=== PATIENT | female | born 1990 ===

== ENCOUNTER 2018-07-11 19:38 | Inpatient (IN) ==
[2018-07-11] MEDS ORDERED: MORPHINE 4 MG/1 ML VIAL IV STA (20:08)
[2018-07-11] MEDS ORDERED: ONDANSETRON 4 MG/2 ML VIAL IV STA (20:08)
[2018-07-11] MEDS ORDERED: MORPHINE 10 MG/1 ML VIAL IV SCH (20:30)
[2018-07-11] MEDS: metroNIDAZOLE INJ 500 MG in PREMIX 1 EACH IV SCH (20:55)
[2018-07-11] MEDS: ONDANSETRON 4 MG/2 ML VIAL IV PRN (22:11)
[2018-07-11] MEDS: MORPHINE 10 MG/1 ML VIAL IV PRN (22:12)
[2018-07-11] MEDS: DEXTROSE 5% LACTATED RINGERS 1,000 ML IV SCH (22:34)
[2018-07-11] MEDS: PIPERACILLIN/TAZOBACTAM 3,375 MG in SODIUM CHLORIDE 0.9% 100 ML IV SCH (22:34)
[2018-07-11] MEDS: KETOROLAC 15 MG/1 ML VIAL IV SCH (23:20)
[2018-07-12] MEDS: MORPHINE 10 MG/1 ML VIAL IV PRN (02:36)
[2018-07-12] MEDS ORDERED: KETOROLAC 15 MG/1 ML VIAL IV ONE (04:00)
[2018-07-12] MEDS: KETOROLAC 15 MG/1 ML VIAL IV SCH ×4 (04:02→23:27)
[2018-07-12] MEDS: HYDROmorphone 2 MG/1 ML VIAL IV PRN ×2 (04:03→15:04)
[2018-07-12] MEDS: metroNIDAZOLE INJ 500 MG in PREMIX 1 EACH IV SCH ×3 (04:11→20:52)
[2018-07-12] MEDS: PIPERACILLIN/TAZOBACTAM 3,375 MG in SODIUM CHLORIDE 0.9% 100 ML IV SCH ×3 (05:38→21:53)
[2018-07-12] MEDS: DEXTROSE 5% LACTATED RINGERS 1,000 ML IV SCH ×2 (05:41→12:30)
[2018-07-12 05:50] LABS: Basophils % 0.2 % (0.0-0.8); Hematocrit 39.6 VOL% (35.7-47.0); Hemoglobin 12.7 GM/DL (12.0-16.0); Immature Granulocytes % 0.6 %; Lymphocytes % 5.4 % (21.3-54.2); Mean Corpuscular HGB Conc 32.1 GM/DL (32-36); Mean Corpuscular Hemoglobin 28 PG (27-34); Mean Corpuscular Volume 88.6 FL (87-102); Mean Platelet Volume 10.1 FL (9.6-12.0); Monocytes # 0.8 10*3/uL (0.11-0.8); Monocytes % 4.3 % (1.7-12.7); Neutrophils # 15.9 10*3/uL (1.4-7.4); Neutrophils % 89.5 % (38.7-73.9); Platelet Count 267 T/CUMM (130-400); Red Blood Count 4.47 MC/CUMM (3.8-5.5); Red Cell Distribution Width 13.8 % (9.3-17.3); White Blood Count 17.8 T/CUMM (4-12)
[2018-07-12 06:18] LABS: Band Neutrophils 6 % (0-10); Hypochromasia 1+; Lymphocytes 6 % (20-55); Platelet Estimate Adequate; Segmented Neutrophils 84 % (50-85); Total Cells Counted 100
[2018-07-12] MEDS ORDERED: TISSUE ADHESIVE 1 EACH APPLICATOR TOP ONE (07:23)
[2018-07-12] MEDS ORDERED: LIDOCAINE 1%/EPI INJ 20 ML VIAL ONE ×2 (07:23→07:46)
[2018-07-12] MEDS ORDERED: BUPIVACAINE 0.25% /EPI 10 ML VIAL ONE (07:23)
[2018-07-12] MEDS ORDERED: SUGAMMADEX 200 MG/2 ML VIAL IV ONE (08:45)
[2018-07-12] MEDS ORDERED: DEXAMETHASONE 10 MG/1 ML VIAL ONE (09:21)
[2018-07-12] MEDS ORDERED: PROPOFOL 200 MG/20 ML VIAL IV ONE (09:21)
[2018-07-12] MEDS ORDERED: MIDAZOLAM 2 MG/2 ML VIAL ONE (09:21)
[2018-07-12] MEDS ORDERED: DESFLURANE 1 UNIT/15 MINUTE INH ONE (09:21)
[2018-07-12] MEDS ORDERED: ONDANSETRON 4 MG/2 ML VIAL ONE (09:21)
[2018-07-12] MEDS ORDERED: SUCCINYLCHOLINE 200 MG/10 ML VIAL ONE (09:21)
[2018-07-12] MEDS ORDERED: ACETAMINOPHEN 1,000 MG/100 ML VIAL IV ONE (09:21)
[2018-07-12] MEDS ORDERED: ROCURONIUM 100 MG/10 ML VIAL IV ONE (09:21)
[2018-07-12] MEDS ORDERED: fentaNYL 100 MCG/2 ML VIAL ONE (09:21)
[2018-07-12] MEDS ORDERED: LACTATED RINGERS 1,000 ML IV ONE (09:22)
[2018-07-12] MEDS: PANTOPRAZOLE 40 MG TABLET PO SCH (11:38)
[2018-07-13] MEDS: DEXTROSE 5% LACTATED RINGERS 1,000 ML IV SCH ×3 (00:02→12:30)
[2018-07-13] MEDS: KETOROLAC 15 MG/1 ML VIAL IV SCH ×3 (05:20→18:34)
[2018-07-13] MEDS: PIPERACILLIN/TAZOBACTAM 3,375 MG in SODIUM CHLORIDE 0.9% 100 ML IV SCH ×2 (05:22→16:29)
[2018-07-13] MEDS: metroNIDAZOLE INJ 500 MG in PREMIX 1 EACH IV SCH ×3 (05:41→21:05)
[2018-07-13 06:41] LABS: Basophils % 0.2 % (0.0-0.8); Eosinophils # 0.1 10*3/uL (0.0-0.87); Eosinophils % 0.8 % (0.00-10.9); Hematocrit 35.2 VOL% (35.7-47.0); Hemoglobin 11.6 GM/DL (12.0-16.0); Immature Granulocytes % 0.6 %; Immature Granulocytes Absolute 0.08 #; Lymphocytes # 1.6 10*3/uL (1.4-4.0); Lymphocytes % 11.2 % (21.3-54.2); Mean Corpuscular Hemoglobin 29 PG (27-34); Mean Corpuscular Volume 86.9 FL (87-102); Mean Platelet Volume 10.4 FL (9.6-12.0); Monocytes # 0.7 10*3/uL (0.11-0.8); Monocytes % 5.1 % (1.7-12.7); NRBC # 0.02 10*3/uL; Neutrophils # 11.9 10*3/uL (1.4-7.4); Neutrophils % 82.1 % (38.7-73.9); Platelet Count 226 T/CUMM (130-400); Red Blood Count 4.05 MC/CUMM (3.8-5.5); Red Cell Distribution Width 13.8 % (9.3-17.3); White Blood Count 14.5 T/CUMM (4-12)
[2018-07-13 07:09] LABS: Calcium 7.7 MG/DL (8.5-10.1); Osmolality,Calculated 277.7 MOS/KG (273-304); Potassium 3.4 MMOL/L (3.5-5.1)
[2018-07-13 07:10] LABS: Hypochromasia Slight; Microcytosis 1+; Platelet Estimate Normal
[2018-07-13] MEDS: PANTOPRAZOLE 40 MG TABLET PO SCH (09:54)
[2018-07-14] MEDS: KETOROLAC 15 MG/1 ML VIAL IV SCH ×5 (00:12→23:38)
[2018-07-14] MEDS: PIPERACILLIN/TAZOBACTAM 3,375 MG in SODIUM CHLORIDE 0.9% 100 ML IV SCH ×3 (01:00→17:43)
[2018-07-14] MEDS: DEXTROSE 5% LACTATED RINGERS 1,000 ML IV SCH ×3 (02:50→21:18)
[2018-07-14] MEDS: metroNIDAZOLE INJ 500 MG in PREMIX 1 EACH IV SCH ×3 (05:09→21:16)
[2018-07-14 05:45] LABS: Basophils % 0.2 % (0.0-0.8); Eosinophils # 0.4 10*3/uL (0.0-0.87); Eosinophils % 2.1 % (0.00-10.9); Hematocrit 34.9 VOL% (35.7-47.0); Hemoglobin 11.4 GM/DL (12.0-16.0); Immature Granulocytes % 0.6 %; Immature Granulocytes Absolute 0.11 #; Lymphocytes # 1.8 10*3/uL (1.4-4.0); Lymphocytes % 9.9 % (21.3-54.2); Mean Corpuscular HGB Conc 32.7 GM/DL (32-36); Mean Corpuscular Hemoglobin 29 PG (27-34); Mean Corpuscular Volume 87.9 FL (87-102); Mean Platelet Volume 10.4 FL (9.6-12.0); Monocytes % 5.5 % (1.7-12.7); Neutrophils # 14.6 10*3/uL (1.4-7.4); Neutrophils % 81.7 % (38.7-73.9); Platelet Count 228 T/CUMM (130-400); Red Blood Count 3.97 MC/CUMM (3.8-5.5); White Blood Count 17.9 T/CUMM (4-12)
[2018-07-14 06:04] LABS: Hypochromasia 1+; Microcytosis 1+
[2018-07-14 06:05] LABS: Platelet Estimate Normal
[2018-07-14] MEDS: PANTOPRAZOLE 40 MG TABLET PO SCH (09:17)
[2018-07-15] MEDS: PIPERACILLIN/TAZOBACTAM 3,375 MG in SODIUM CHLORIDE 0.9% 100 ML IV SCH ×3 (01:09→17:23)
[2018-07-15 02:59] LABS: Apearance,Urine CLEAR (Clear); Bilirubin,Urine Negative (Negative); Blood, Urine Negative (Negative); Glucose,Urine (UA) 50 mg/dL (Negative); Ketones,Urine Negative (Negative); Nitrite,Urine Negative (Negative); Protein,Urine 30 MG/DL; RBC,Urine 1 /HPF (0-4); Squamous Epithelial Cell,Urine Occasional /HPF (0-10); Urine Color Yellow (Yellow); Urine Specific Gravity 1.018 (1.001-1.035); Urine Urobilinogen < 2.0 EU/DL (0.2-1.0); WBC,Urine 1 /HPF (0-6)
[2018-07-15] MEDS: metroNIDAZOLE INJ 500 MG in PREMIX 1 EACH IV SCH ×3 (04:10→21:39)
[2018-07-15] MEDS: KETOROLAC 15 MG/1 ML VIAL IV SCH ×4 (04:11→23:26)
[2018-07-15 05:11] LABS: Basophils % 0.2 % (0.0-0.8); Eosinophils # 0.4 10*3/uL (0.0-0.87); Eosinophils % 2.6 % (0.00-10.9); Hemoglobin 10.4 GM/DL (12.0-16.0); Immature Granulocytes % 0.9 %; Immature Granulocytes Absolute 0.14 #; Lymphocytes # 2.1 10*3/uL (1.4-4.0); Mean Corpuscular HGB Conc 32.5 GM/DL (32-36); Mean Corpuscular Hemoglobin 29 PG (27-34); Mean Corpuscular Volume 88.4 FL (87-102); Mean Platelet Volume 10.4 FL (9.6-12.0); Monocytes # 1.6 10*3/uL (0.11-0.8); Neutrophils # 11.9 10*3/uL (1.4-7.4); Neutrophils % 73.3 % (38.7-73.9); Platelet Count 212 T/CUMM (130-400); Red Blood Count 3.62 MC/CUMM (3.8-5.5); Red Cell Distribution Width 14.1 % (9.3-17.3); White Blood Count 16.2 T/CUMM (4-12)
[2018-07-15] MEDS: DEXTROSE 5% LACTATED RINGERS 1,000 ML IV SCH (05:21)
[2018-07-15 05:28] LABS: Calcium 7.8 MG/DL (8.5-10.1); Osmolality,Calculated 281.5 MOS/KG (273-304); Potassium 3.1 MMOL/L (3.5-5.1)
[2018-07-15 05:37] LABS: Hypochromasia 1+; Microcytosis 1+; Platelet Estimate Adequate
[2018-07-15] MEDS: PANTOPRAZOLE 40 MG TABLET PO SCH (09:45)
[2018-07-15] MEDS: ONDANSETRON 4 MG/2 ML VIAL IV PRN (10:49)
[2018-07-16] MEDS: PIPERACILLIN/TAZOBACTAM 3,375 MG in SODIUM CHLORIDE 0.9% 100 ML IV SCH ×3 (00:26→17:06)
[2018-07-16] MEDS: MORPHINE 4 MG/1 ML VIAL IV PRN ×2 (00:30→21:41)
[2018-07-16] MEDS: metroNIDAZOLE INJ 500 MG in PREMIX 1 EACH IV SCH ×3 (05:31→22:10)
[2018-07-16] MEDS: KETOROLAC 15 MG/1 ML VIAL IV SCH ×3 (05:32→17:02)
[2018-07-16 06:03] LABS: Basophils % 0.2 % (0.0-0.8); Eosinophils # 0.4 10*3/uL (0.0-0.87); Eosinophils % 3.1 % (0.00-10.9); Hemoglobin 11.2 GM/DL (12.0-16.0); Immature Granulocytes % 1.1 %; Immature Granulocytes Absolute 0.13 #; Lymphocytes % 16.4 % (21.3-54.2); Mean Corpuscular Hemoglobin 28 PG (27-34); Mean Corpuscular Volume 87.5 FL (87-102); Mean Platelet Volume 10.6 FL (9.6-12.0); Monocytes # 1.3 10*3/uL (0.11-0.8); Monocytes % 10.3 % (1.7-12.7); Neutrophils # 8.5 10*3/uL (1.4-7.4); Neutrophils % 68.9 % (38.7-73.9); Platelet Count 258 T/CUMM (130-400); Red Cell Distribution Width 14.5 % (9.3-17.3); White Blood Count 12.4 T/CUMM (4-12)
[2018-07-16 06:23] LABS: Calcium 8.2 MG/DL (8.5-10.1); Osmolality,Calculated 278.4 MOS/KG (273-304)
[2018-07-16] MEDS: PANTOPRAZOLE 40 MG TABLET PO SCH (10:06)
[2018-07-16] MEDS ORDERED: POTASSIUM CHLORIDE 20 MEQ TABLET PO ONE ×2 (12:02→15:00)
[2018-07-17] MEDS: PIPERACILLIN/TAZOBACTAM 3,375 MG in SODIUM CHLORIDE 0.9% 100 ML IV SCH ×3 (01:08→16:58)
[2018-07-17] MEDS: MORPHINE 4 MG/1 ML VIAL IV PRN ×2 (05:26→19:36)
[2018-07-17] MEDS: metroNIDAZOLE INJ 500 MG in PREMIX 1 EACH IV SCH ×3 (05:31→21:25)
[2018-07-17 06:10] LABS: Basophils # 0.1 10*3/uL (0.0-0.2); Basophils % 0.4 % (0.0-0.8); Eosinophils # 0.3 10*3/uL (0.0-0.87); Eosinophils % 2.5 % (0.00-10.9); Hematocrit 33.6 VOL% (35.7-47.0); Hemoglobin 10.9 GM/DL (12.0-16.0); Immature Granulocytes % 2.2 %; Immature Granulocytes Absolute 0.29 #; Lymphocytes # 2.1 10*3/uL (1.4-4.0); Lymphocytes % 15.9 % (21.3-54.2); Mean Corpuscular HGB Conc 32.4 GM/DL (32-36); Mean Corpuscular Hemoglobin 28 PG (27-34); Mean Platelet Volume 10.5 FL (9.6-12.0); Monocytes # 1.3 10*3/uL (0.11-0.8); Monocytes % 10.2 % (1.7-12.7); Neutrophils # 8.9 10*3/uL (1.4-7.4); Neutrophils % 68.8 % (38.7-73.9); Platelet Count 265 T/CUMM (130-400); Red Blood Count 3.86 MC/CUMM (3.8-5.5); Red Cell Distribution Width 14.6 % (9.3-17.3)
[2018-07-17 06:36] LABS: Eosinophils 5 % (0-10); Lymphocytes 32 % (20-55); Myelocytes 1 %; Segmented Neutrophils 48 % (50-85); Total Cells Counted 100
[2018-07-17 06:37] LABS: Hypochromasia Slight; Platelet Estimate Normal; Polychromasia Few
[2018-07-17 06:51] LABS: Calcium 7.6 MG/DL (8.5-10.1); Osmolality,Calculated 276.5 MOS/KG (273-304); Potassium 3.4 MMOL/L (3.5-5.1)
[2018-07-17] MEDS: PANTOPRAZOLE 40 MG TABLET PO SCH (08:57)
[2018-07-17] MEDS ORDERED: POTASSIUM CHLORIDE 20 MEQ TABLET PO ONE (09:04)
[2018-07-17] MEDS ORDERED: BISACODYL 10 MG SUPP RECTAL ONE (09:05)
[2018-07-18] MEDS: PIPERACILLIN/TAZOBACTAM 3,375 MG in SODIUM CHLORIDE 0.9% 100 ML IV SCH ×3 (00:27→17:39)
[2018-07-18] MEDS: MORPHINE 4 MG/1 ML VIAL IV PRN ×3 (03:17→17:43)
[2018-07-18] MEDS: metroNIDAZOLE INJ 500 MG in PREMIX 1 EACH IV SCH ×3 (05:13→21:50)
[2018-07-18 06:06] LABS: Basophils # 0.1 10*3/uL (0.0-0.2); Basophils % 0.4 % (0.0-0.8); Eosinophils # 0.3 10*3/uL (0.0-0.87); Eosinophils % 2.1 % (0.00-10.9); Hematocrit 34.2 VOL% (35.7-47.0); Immature Granulocytes % 4.3 %; Immature Granulocytes Absolute 0.65 #; Lymphocytes # 2.8 10*3/uL (1.4-4.0); Lymphocytes % 18.6 % (21.3-54.2); Mean Corpuscular HGB Conc 32.2 GM/DL (32-36); Mean Corpuscular Hemoglobin 28 PG (27-34); Mean Corpuscular Volume 87.2 FL (87-102); Mean Platelet Volume 9.8 FL (9.6-12.0); Monocytes # 1.4 10*3/uL (0.11-0.8); Neutrophils % 65.6 % (38.7-73.9); Platelet Count 361 T/CUMM (130-400); Red Blood Count 3.92 MC/CUMM (3.8-5.5); Red Cell Distribution Width 14.8 % (9.3-17.3); White Blood Count 15.2 T/CUMM (4-12)
[2018-07-18 06:28] LABS: Calcium 8.1 MG/DL (8.5-10.1); Osmolality,Calculated 272.7 MOS/KG (273-304); Potassium 3.8 MMOL/L (3.5-5.1)
[2018-07-18 06:46] LABS: Atypical Lymphocytes Few; Eosinophils 4 % (0-10); Hypochromasia 1+; Lymphocytes 24 % (20-55); Myelocytes 1 %; Segmented Neutrophils 63 % (50-85); Total Cells Counted 100
[2018-07-18 06:47] LABS: Microcytosis Slight; Platelet Estimate Increased
[2018-07-18] MEDS: PANTOPRAZOLE 40 MG TABLET PO SCH (09:28)
[2018-07-19] MEDS: MORPHINE 4 MG/1 ML VIAL IV PRN ×2 (02:23→21:42)
[2018-07-19] MEDS: PIPERACILLIN/TAZOBACTAM 3,375 MG in SODIUM CHLORIDE 0.9% 100 ML IV SCH ×3 (02:31→16:12)
[2018-07-19] MEDS: metroNIDAZOLE INJ 500 MG in PREMIX 1 EACH IV SCH ×3 (06:36→20:33)
[2018-07-19] MEDS: PANTOPRAZOLE 40 MG TABLET PO SCH (11:05)
[2018-07-20] MEDS: PIPERACILLIN/TAZOBACTAM 3,375 MG in SODIUM CHLORIDE 0.9% 100 ML IV SCH ×3 (01:04→20:44)
[2018-07-20] MEDS: metroNIDAZOLE INJ 500 MG in PREMIX 1 EACH IV SCH ×2 (05:08→13:51)
[2018-07-20 06:07] LABS: Basophils % 0.3 % (0.0-0.8); Eosinophils # 0.3 10*3/uL (0.0-0.87); Eosinophils % 1.9 % (0.00-10.9); Hematocrit 35.5 VOL% (35.7-47.0); Hemoglobin 11.5 GM/DL (12.0-16.0); Immature Granulocytes % 2.8 %; Immature Granulocytes Absolute 0.38 #; Lymphocytes # 2.5 10*3/uL (1.4-4.0); Lymphocytes % 18.4 % (21.3-54.2); Mean Corpuscular HGB Conc 32.4 GM/DL (32-36); Mean Corpuscular Hemoglobin 28 PG (27-34); Mean Corpuscular Volume 86.8 FL (87-102); Mean Platelet Volume 9.5 FL (9.6-12.0); Monocytes # 0.9 10*3/uL (0.11-0.8); Monocytes % 6.6 % (1.7-12.7); Neutrophils # 9.4 10*3/uL (1.4-7.4); Platelet Count 479 T/CUMM (130-400); Red Blood Count 4.09 MC/CUMM (3.8-5.5); Red Cell Distribution Width 14.6 % (9.3-17.3); White Blood Count 13.5 T/CUMM (4-12)
[2018-07-20] MEDS: MORPHINE 4 MG/1 ML VIAL IV PRN ×2 (06:15→21:08)
[2018-07-20 06:23] LABS: Calcium 8.1 MG/DL (8.5-10.1); Osmolality,Calculated 274.5 MOS/KG (273-304); Potassium 3.8 MMOL/L (3.5-5.1)
[2018-07-20 06:40] LABS: Band Neutrophils 1 % (0-10); Eosinophils 2 % (0-10); Giant Platelets Few; Hypochromasia 1+; Lymphocytes 19 % (20-55); Microcytosis Slight; Platelet Estimate Adequate; Segmented Neutrophils 67 % (50-85); Total Cells Counted 100
[2018-07-20] MEDS: PANTOPRAZOLE 40 MG TABLET PO SCH (09:47)
[2018-07-21] MEDS: MORPHINE 4 MG/1 ML VIAL IV PRN ×3 (05:17→22:37)
[2018-07-21] MEDS: metroNIDAZOLE INJ 500 MG in PREMIX 1 EACH IV SCH ×3 (05:20→21:29)
[2018-07-21 06:21] LABS: Basophils # 0.1 10*3/uL (0.0-0.2); Basophils % 0.5 % (0.0-0.8); Eosinophils # 0.2 10*3/uL (0.0-0.87); Eosinophils % 1.6 % (0.00-10.9); Hematocrit 37.2 VOL% (35.7-47.0); Hemoglobin 11.7 GM/DL (12.0-16.0); Immature Granulocytes % 1.7 %; Immature Granulocytes Absolute 0.22 #; Lymphocytes # 2.2 10*3/uL (1.4-4.0); Mean Corpuscular HGB Conc 31.5 GM/DL (32-36); Mean Corpuscular Hemoglobin 28 PG (27-34); Mean Corpuscular Volume 88.6 FL (87-102); Mean Platelet Volume 10.6 FL (9.6-12.0); Monocytes # 0.7 10*3/uL (0.11-0.8); Monocytes % 5.9 % (1.7-12.7); Neutrophils # 9.2 10*3/uL (1.4-7.4); Neutrophils % 73.3 % (38.7-73.9); Platelet Count 493 T/CUMM (130-400); Red Cell Distribution Width 14.9 % (9.3-17.3); White Blood Count 12.6 T/CUMM (4-12)
[2018-07-21] MEDS: PIPERACILLIN/TAZOBACTAM 3,375 MG in SODIUM CHLORIDE 0.9% 100 ML IV SCH ×3 (06:24→22:37)
[2018-07-21 06:46] LABS: Hypochromasia 1+
[2018-07-21 06:47] LABS: Microcytosis Slight; Platelet Estimate Increased
[2018-07-21] MEDS: PANTOPRAZOLE 40 MG TABLET PO SCH (09:12)
[2018-07-22] MEDS: metroNIDAZOLE INJ 500 MG in PREMIX 1 EACH IV SCH ×2 (04:27→13:09)
[2018-07-22] MEDS: MORPHINE 4 MG/1 ML VIAL IV PRN ×2 (04:28→13:48)
[2018-07-22] MEDS: PIPERACILLIN/TAZOBACTAM 3,375 MG in SODIUM CHLORIDE 0.9% 100 ML IV SCH ×2 (05:27→14:33)
[2018-07-22] MEDS: PANTOPRAZOLE 40 MG TABLET PO SCH (09:22)
[2018-07-22 09:24] LABS: Basophils # 0.1 10*3/uL (0.0-0.2); Basophils % 0.5 % (0.0-0.8); Eosinophils # 0.2 10*3/uL (0.0-0.87); Hematocrit 36.6 VOL% (35.7-47.0); Hemoglobin 11.6 GM/DL (12.0-16.0); Immature Granulocytes % 1.2 %; Immature Granulocytes Absolute 0.12 #; Lymphocytes # 2.1 10*3/uL (1.4-4.0); Lymphocytes % 21.9 % (21.3-54.2); Mean Corpuscular HGB Conc 31.7 GM/DL (32-36); Mean Corpuscular Hemoglobin 28 PG (27-34); Mean Platelet Volume 9.5 FL (9.6-12.0); Monocytes # 0.6 10*3/uL (0.11-0.8); Monocytes % 5.8 % (1.7-12.7); Neutrophils # 6.7 10*3/uL (1.4-7.4); Neutrophils % 68.6 % (38.7-73.9); Platelet Count 616 T/CUMM (130-400); Red Blood Count 4.16 MC/CUMM (3.8-5.5); Red Cell Distribution Width 14.6 % (9.3-17.3); White Blood Count 9.7 T/CUMM (4-12)
[2018-07-22 11:03] VITALS: BP 156/96
== END 2018-07-22 15:20 | disposition home or self-care (01) | DRG 339 ==
LOC: EDBD → EDUNIT# → N.ED 19:38 → N.EDINP 20:12 → N.3E 21:32
PROVIDERS: ADMIT Surgery; ATTEND Surgery